=== PATIENT | male | born 1995 | race Two or more races ===

== ENCOUNTER 2024-12-20 12:40 | Emergency (ER) | payer MEDICAID, SELFPAY ==
[2024-12-20 12:45] VITALS: BMI 22.1
[2024-12-20 12:48] VITALS: BP 108/68; PULSE 110; RESP 17; TEMP 36.7; O2SAT 97; BMI 22.1
--- NOTE | 2024-12-20 12:54 | XR_ITS ---
Examination: Forearm, left, 2 views. Technique: Forearm, AP, lateral 2 views Date and time of exam: December 20, 2024 1313 hrs. Indications: Injury to the forearm today, forearm pain. Findings: No fracture or dislocation. Please see the hand report Impression: No forearm fracture
--- NOTE | 2024-12-20 12:54 | XR_ITS ---
Examination: Hand, left 3 views Technique: Hand AP, oblique, lateral 3 views Date and time of exam: December 20, 2024 1310 hrs. Indications: Injury to the hand today, hand pain. Findings: Acute comminuted fractures bases with metacarpal with displacement of fracture fragments There is prominent soft tissue swelling at the fracture site Impression: Acute comminuted displaced fracture fragments base fifth metacarpal
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
== END 2024-12-20 14:26 ==
PROVIDERS: Emergency Provider Family Medicine; PCP Physician Assistant
DX: Z02.89 Encounter for other administrative examinations (principal); S62.317A Displaced fracture of base of fifth metacarpal bone, left hand, initial encounter for closed fracture; S51.812A Laceration without foreign body of left forearm, initial encounter; Y35.813A Legal intervention involving manhandling, suspect injured, initial encounter
CPT/HCPCS: 12004; 29125; 73090; 73130; 99283

== ENCOUNTER → 2024-12-29 | Outpatient (CLI) | payer MEDICAID, SELFPAY ==
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
== END | disposition home or self-care (01) ==
PROVIDERS: PCP Family Medicine; Referring Provider Physician Assistant; Visit Provider Physician Assistant
DX: S22.42XA Multiple fractures of ribs, left side, initial encounter for closed fracture (principal); Y04.0XXA Assault by unarmed brawl or fight, initial encounter
CPT/HCPCS: 71111

== ENCOUNTER 2025-02-14 14:01 | Emergency (ER) | payer MEDICAID, SELFPAY ==
[2025-02-14 14:16] VITALS: BP 121/73; PULSE 125; RESP 18; TEMP 37.3; O2SAT 100; BMI 24.0
--- NOTE | 2025-02-14 15:05 | PD.EDADULT ---
ED General RME/HPI General Chief complaint: General Adult/Misc Complain Stated complaint: B/L KNEE PAIN/BONNER/RASH Time Seen by Provider: 02/14/25 14:11 Arrival date/time: 02/14/25 14:01 RME / HPI RME / HPI narrative: 29-year-old male patient came in for evaluation regarding multiple erythematous lesion to the bilateral lower extremity anterior aspect been ongoing for the last 2 days with discomfort. Patient is ambulatory. Patient denies any fever denies any other complaints no medications taken prior to arrival. Patient is not taking any medications. Related Data Previous Rx's ?Medication ?Instructions ?Recorded ibuprofen 800 mg tablet 800 mg PO Q8H PRN pain #30 tabs 02/14/25 prednisone 50 mg tablet 50 mg PO QDAY #7 tabs 02/14/25 Allergies Allergy/AdvReac Type Severity Reaction Status Date / Time No Known Allergies Allergy Verified 02/14/25 14:03 Review of Systems Review of Systems Narrative Review of Systems: Review of system reviewed and within normal limits except mentioned in HPI ED Exam Narrative Physical exam: VITAL SIGNS: Reviewed. GENERAL APPEARANCE: Alert and interactive, follows commands, no acute distress, HEAD AND FACE: Non-traumatic. ENT: PERRL, pink conjunctivitis, eyelid no trauma, Mucous membrane moist. NECK: Supple, nontender, no nuchal rigidity. CHEST: No tenderness, no crepitus, no paradoxical movement, no retractions. LUNGS: Clear, well ventilated, symmetric, no rales, no wheezing, no ronchi, no stridor, good breath sounds bilaterally. HEART: Regular rate, regular rhythm, no murmur, no gallops. ABDOMEN: Soft, positive bowel sounds, nondistended, no guarding, nontender, no rebound, no masses, RECTAL: Deferred. GENITAL: Deferred. NEUROLOGICAL: Gross motor function intact sensory function intact, Appropriate for age. MUSCULOSKELETAL: low back nontender, full range of motion. EXTREMITIES: Multiple erythematous nodule located on the anterior aspect of the bilateral lower leg nonfluctuant with discomfort and tenderness, full full range of motion. Distal neurovascular status intact bilateral lower extremity SKIN: Color pink, dry, no rash, no lacerations, no abrasions, no contusions. LYMPHATICS: Deferred. Course Quality Measures none Orders Category Date Time Status Dexamethasone Inj [Decadron Inj] Med 02/14/25 15:04 Once 10 mg IM X1 ONE Ibuprofen Tab [Motrin Tab] Med 02/14/25 15:04 Once 800 mg PO X1 ONE Vital Signs Vital signs: Vital Signs Temperature 99.2 F 02/14/25 14:16 Pulse Rate 125 H 02/14/25 14:16 Respiratory Rate 18 02/14/25 14:16 Blood Pressure 121/73 02/14/25 14:16 Pulse Oximetry (%) 100 02/14/25 14:16 Oxygen Delivery Method Room Air 02/14/25 14:16 Discharge Plan Plan Patient Disposition: HOME (Self Care) Discharge Disposition comment: Stable Prescriptions/Referrals Prescriptions/Med Rec: New prednisone 50 mg tablet 50 mg PO QDAY Qty: 7 0RF ibuprofen 800 mg tablet 800 mg PO Q8H PRN (Reason: pain) Qty: 30 0RF Referrals: No Primary/Family,Physician [Primary Care Provider] - In 1 week Problem List Clinical Impression: Erythema nodosum Patient/Caregiver Discharge Instructions Discharge Activity: activity as tolerated Education Materials: ED Erythema Additional Instructions: Thank you for the opportunity for serving you today. You are stable for discharged . You are advised to: Follow-up with your PCP in 1 to 2 days Return to ED for worsening of symptoms Increase oral fluids Take medication as prescribed Print Language: Guamanian Stand Alone Forms: [employer] Award Info., Patient Portal Info Letter ALFIE/BIRD Supervising Physician ALAYNA Supervising Physician: MD Tita [facility] Narrative [facility] hospital course: 29-year-old male patient came in for evaluation regarding multiple erythematous lesion to the bilateral lower extremity anterior aspect been ongoing for the last 2 days with discomfort. Patient is ambulatory. Patient denies any fever denies any other complaints no medications taken prior to arrival. Patient is not taking any medications. Imaging or laboratory workup not at this time. Clinically patient is having erythema nodosum. Patient appears nontoxic and hemodynamically stable .Decision to discharge the patient. The patient/family was given an opportunity to ask questions and understood their discharge instructions. Discharge instructions specifically included follow up provider and time frame, current and/or new medications and possible side effects, indications for sooner follow up or return to the emergency department, and the expected course of current diagnosis. Patient reports feeling better as well and giving evidence of significant clinical improvement, I believe patient is now a candidate for discharge. Medication Administration(s) Medication Administration History Discontinued Medications Dexamethasone Sodium Phosphate (Dexamethasone Sod Phos Inj 10 Mg/Ml Vial) 10 mg IM X1 ONE Stop: 02/14/25 15:05 Ibuprofen (Ibuprofen Tab 400 Mg Tablet) 800 mg PO X1 ONE Stop: 02/14/25 15:05
[2025-02-14] MEDS: IBUPROFEN TAB 400 MG TABLET 800 MG PO (15:20)
[2025-02-14] MEDS: DEXAMETHASONE SOD PHOS INJ 10 MG/ML VIAL IM (15:21)
== END 2025-02-14 15:32 | disposition home or self-care (01) ==
PROVIDERS: Emergency Provider Family Medicine; PCP Physician Assistant
DX: L52 Erythema nodosum (principal)
CPT/HCPCS: 96372; 99282; J1100; A9270

== ENCOUNTER 2025-05-21 13:27 | Emergency (ER) | payer MEDICAID, SELFPAY ==
[2025-05-21 13:28] VITALS: BMI 25.1
[2025-05-21 13:48] VITALS: BP 126/77; PULSE 110; RESP 18; TEMP 36.4; O2SAT 97
--- NOTE | 2025-05-21 14:00 | XR_ITS ---
Examination: Hand, left Technique: Hand AP, oblique, lateral 3 views Date and time of exam: 05/21/2025 at 2:18 p.m. INDICATION: Dog bite left hand today, third finger COMPARISON: Left hand radiographs 12/20/2024 FINDINGS: No evidence for acute fracture or dislocation, particular at the third finger. Interval healing of the comminuted angulated fracture deformity of the proximal fifth metacarpal since prior exam. Soft tissue swelling noted. No evidence for radiodense foreign body. IMPRESSION: No evidence for acute fracture or dislocation, particular at the third finger.
--- NOTE | 2025-05-21 14:01 | PD.EDHAND ---
Upper Extremity Injury RME/HPI General Chief Complaint: Animal Bite Stated Complaint: DOG BITE LEFT HAND TODAY,3RD FINGER Time Seen by Provider: 05/21/25 13:54 Arrival date/time: 05/21/25 13:27 29-year-old male patient came in for evaluation regarding dog bite to the finger. Incident happened few minutes prior to ER visit, patient is trying to pet the dog and got bitten, sustaining puncture wound to the distal phalanx of the left middle finger. Able to bend and extend the finger but with tenderness. No deformity noted. Tetanus vaccination is unknown. Patient also complained of pain described as sharp and severity moderate. Was bitten by a stray dog however patient saw this dog several times in the past. Related Data Previous Rx's ?Medication ?Instructions ?Recorded ibuprofen 800 mg tablet 800 mg PO Q8H PRN pain #30 tabs 02/14/25 prednisone 50 mg tablet 50 mg PO QDAY #7 tabs 02/14/25 amoxicillin 875 mg-potassium 1 tab PO BID #14 tabs 05/21/25 clavulanate 125 mg tablet ibuprofen 800 mg tablet 800 mg PO Q8H PRN pain #30 tabs 05/21/25 Allergies Allergy/AdvReac Type Severity Reaction Status Date / Time No Known Allergies Allergy Verified 05/21/25 13:29 Review of Systems Review of Systems Narrative Review of Systems: Review of system reviewed and within normal limits except mentioned in HPI ED Exam Narrative Physical exam: VITAL SIGNS: Reviewed. GENERAL APPEARANCE: Alert and interactive, follows commands, no acute distress, HEAD AND FACE: Non-traumatic. ENT: PERRL, pink conjunctivitis, eyelid no trauma, Mucous membrane moist. NECK: Supple, nontender, no nuchal rigidity. CHEST: No tenderness, no crepitus, no paradoxical movement, no retractions. LUNGS: Clear, well ventilated, symmetric, no rales, no wheezing, no ronchi, no stridor, good breath sounds bilaterally. HEART: Regular rate, regular rhythm, no murmur, no gallops. ABDOMEN: Soft, positive bowel sounds, nondistended, no guarding, nontender, no rebound, no masses, RECTAL: Deferred. GENITAL: Deferred. NEUROLOGICAL: Gross motor function intact sensory function intact, Appropriate for age. MUSCULOSKELETAL: low back nontender, full range of motion. EXTREMITIES: + Puncture wound to the left index finger tip no crepitus no deformity, full range of motion. Distal neurovascular status intact. SKIN: Color pink, dry, no rash, no lacerations, no abrasions, no contusions. LYMPHATICS: Deferred. Course Quality Measures none Orders Category Date Time Status XR hand LT 2V Stat Exams 05/21/25 14:00 Completed Amoxicillin/Pot Clav 875 [Augmentin 875] Med 05/21/25 14:00 Discontinued 1 tab PO X1 ONE Ketorolac Inj [Toradol Inj] Med 05/21/25 14:00 Discontinued 30 mg IM X1 ONE TET,DIP/PERT AC (Adult)-Tdap [Boostrix Adult (Tdap) Med 05/21/25 14:00 Discontinued Vacc] 0.5 ml IMI .ONCE ONE Vital Signs Vital signs: Vital Signs Temperature 97.6 F 05/21/25 13:48 Pulse Rate 110 H 05/21/25 13:48 Respiratory Rate 18 05/21/25 13:48 Blood Pressure 126/77 05/21/25 13:48 Pulse Oximetry (%) 97 05/21/25 13:48 Oxygen Delivery Method Room Air 05/21/25 13:48 Extremity Injury MDM Narrative MDM Narrative:: 05/21/25 13:27 29-year-old male patient came in for evaluation regarding dog bite to the finger. Incident happened few minutes prior to ER visit, patient is trying to pet the dog and got bitten, sustaining puncture wound to the distal phalanx of the left middle finger. Able to bend and extend the finger but with tenderness. No deformity noted. Tetanus vaccination is unknown. Patient also complained of pain described as sharp and severity moderate. Was bitten by a stray dog however patient saw this dog several times in the past. X-ray of the hand came back unremarkable. No fracture noted. Punctured wound was cleaned with NS and bacitracin dressing applied. Patient was given Boostrix, Augmentin and Toradol stable for discharge home Patient data External records reviewed:: None Clinical information provided by:: patient Social determinants that could affect healthcare access:: none Patient has the following chronic illnesses:: None How is presenting disease/condition affected by chronic disease/condition?: no chronic disease Evaluation data The following diagnostics were reviewed and interpreted by me:: radiology exam(s) Lab and/or radiology exams considered but not ordered:: None Interpretation Summary: See results and MDM Medications / Prescriptions Medications or Prescriptions considered but not ordered:: None Medication administrations:: Medication Administration History Discontinued Medications Amoxicillin/Clavulanate Potassium (Amoxicillin/Pot Clav 875 Tablet) 1 tab PO X1 ONE Stop: 05/21/25 14:01 Last Admin: 05/21/25 14:32 Dose: 1 tab Documented By: Diphtheria/Tetanus/Acell Pertussis (Diphth,Pertuss(Acell),Tet Vac 0.5 Ml Syr- Adult) 0.5 ml IMi .ONCE ONE Stop: 05/21/25 14:01 Last Admin: 05/21/25 14:32 Dose: 0.5 ml Documented By: Ketorolac Tromethamine (Ketorolac Inj 30 Mg/Ml Vial) 30 mg IM X1 ONE Stop: 05/21/25 14:01 Last Admin: 05/21/25 14:31 Dose: 30 mg Documented By: Toradol, Augmentin, and Boostrix Consultations Consultation(s) initiated? (list below): No Diagnosis Upper Extremity Injury Differential Diagnosis: finger sprain and other Most likely diagnosis given after review of the tests above:: Dog bite finger Admission Indicated Admission indicated?: not indicated Admission Request Was there a request for admission?: No Disposition Plan Disposition Plan: Discharge Discharge Attestation Discharge Attestation: The patient and all family members were given an opportunity to ask questions and understood the discharge instructions. Discharge instructions specifically effects, indications for sooner follow up or return to the emergency department, and the expected course of current diagnosis. Patient condition: Stable Discharge Plan Plan Patient Disposition: HOME (Self Care) Discharge Disposition comment: stable Prescriptions/Referrals Prescriptions/Med Rec: New amoxicillin-pot clavulanate 875-125 mg tablet 1 tab PO BID Qty: 14 0RF ibuprofen 800 mg tablet 800 mg PO Q8H PRN (Reason: pain) Qty: 30 0RF No Action prednisone 50 mg tablet 50 mg PO QDAY Qty: 7 0RF ibuprofen 800 mg tablet 800 mg PO Q8H PRN (Reason: pain) Qty: 30 0RF Problem List Clinical Impression: Dog bite of finger Patient/Caregiver Discharge Instructions Discharge Activity: activity as tolerated Education Materials: ED Dog Bite Additional Instructions: Thank you for the opportunity for serving you today. You are stable for discharged . You are advised to: Follow-up with your PCP in 1 to 2 days Return to ED for worsening of symptoms Increase oral fluids Take medication as prescribed Daily dressing with triple antibiotic as needed Report this to your low enforcement/animal control, and quarantine the dog for 2 weeks if something happens at the dog, you need to come back to the emergency room for rabies shots. Print Language: Italian Stand Alone Forms: Cheryl Award Info., Patient Portal Info Letter PA/[employer] FABRICATOR ASSEMBLER Supervising Physician PA/[employer] FABRICATOR ASSEMBLER Supervising Physician: MD Tita
[2025-05-21] MEDS: KETOROLAC INJ 30 MG/ML VIAL IM (14:31)
[2025-05-21] MEDS: AMOXICILLIN/POT CLAV 875 TABLET 1 TAB PO (14:32)
[2025-05-21] MEDS: DIPHTH,PERTUSS(ACELL),TET VAC 0.5 ML SYR- ADULT IMi (14:32)
== END 2025-05-21 16:17 | disposition home or self-care (01) ==
LOC: SERX 16:24
PROVIDERS: Emergency Provider Nurse Practitioner Family
DX: S61.303A Unspecified open wound of left middle finger with damage to nail, initial encounter (principal); W54.0XXA Bitten by dog, initial encounter; Z23 Encounter for immunization
CPT/HCPCS: 73120; 90471; 90715; 96372; 99283; J1885; A9270